=== PATIENT | male | born 1985 | race African-American/Black ===

== ENCOUNTER 2019-11-19 16:17 | Emergency (ER) | payer SELFPAY ==
[2019-11-19 16:47] VITALS: BP 159/103
--- NOTE | 2019-11-19 17:11 | ER Document Report ---
ED Medical Screen (RME) - General Chief Complaint: Chest Pain Stated Complaint: CHEST PAIN Time Seen by Provider: 11/19/19 17:01 Mode of Arrival: Ambulatory Information source: Patient Notes: Otherwise healthy 34-year-old male presenting with chest pain. Patient reports pain ongoing for the last 2 to 3 days. He states it feels like a dull pain on the right side of his chest. He does report recent upper respiratory infection. Patient reports that he googled his symptoms today and decided to take 2 doses of amoxicillin for his chest pain. He denies any fevers. Denies any cocaine use. Exam: Lung sounds clear and equal bilaterally, no reproducible pain with palpation on the chest wall. I have greeted and performed a rapid initial assessment of this patient. A comprehensive ED assessment and evaluation of the patient, analysis of test results and completion of the medical decision making process will be conducted by additional ED providers. I have specifically instructed the patient or family members with the patient to immediately return to any nursing staff should anything change in the patient's condition or with their chief complaint. TRAVEL OUTSIDE OF THE [place] IN LAST 30 DAYS: No - Related Data Allergies/Adverse Reactions: No Known Allergies Allergy (Verified 11/19/19 16:53) Past Medical History - Social History Frequency of alcohol use: Social Drug Abuse: Marijuana - Immunizations Hx Diphtheria, Pertussis, Tetanus Vaccination: Yes Physical Exam - Vital signs Vitals: Temp Pulse Resp BP Pulse Ox 98.1 F 67 16 159/103 H 99 11/19/19 16:46 11/19/19 16:46 11/19/19 16:46 11/19/19 16:46 11/19/19 16:46 Course - Vital Signs Vital signs: Temp Pulse Resp BP Pulse Ox 98.1 F 67 16 159/103 H 99 11/19/19 16:46 11/19/19 16:46 11/19/19 16:46 11/19/19 16:46 11/19/19 16:46
--- NOTE | 2019-11-19 17:35 | RADIOLOGY REPORT (SQ) ---
EXAM DESCRIPTION: CHEST 2 VIEWS COMPLETED DATE/TIME: 11/19/2019 5:17 pm REASON FOR STUDY: chest pain COMPARISON: None. EXAM PARAMETERS: NUMBER OF VIEWS: two views TECHNIQUE: Digital Frontal and Lateral radiographic views of the chest acquired. RADIATION DOSE: NA LIMITATIONS: none FINDINGS: LUNGS AND PLEURA: No opacities, masses or pneumothorax. No pleural effusion. MEDIASTINUM AND HILAR STRUCTURES: No masses or contour abnormalities. HEART AND VASCULAR STRUCTURES: Heart normal size. No evidence for failure. BONES: No acute findings. HARDWARE: None in the chest. OTHER: No other significant finding. IMPRESSION: NO ACUTE RADIOGRAPHIC FINDING IN THE CHEST. TECHNICAL DOCUMENTATION: JOB ID: [id number] 2010 [employer]- All Rights Reserved Reading location - IP/workstation name: [facility]
[2019-11-19 18:41] LABS: ABSOLUTE EOSINOPHILS # (AUTO) 0.4 10^3/uL (0.0-0.6); ABSOLUTE NEUT (AUTO) 5.1 10^3/uL (1.7-8.2); TOTAL CELLS COUNTED % (AUTO) 100 %
[2019-11-19 18:49] LABS: ABSOLUTE BASOPHILS # (AUTO) 0.1 10^3/uL (0.0-0.2); ABSOLUTE LYMPHOCYTES (AUTO) 4.6 10^3/uL (0.5-4.7); BASOPHILS % (AUTO) 0.8 % (0-2); EOSINOPHILS % (AUTO) 3.9 % (0-6); HEMATOCRIT 42.6 % (37.9-51.0); HEMOGLOBIN 14.9 g/dL (13.5-17.0); LYMPHOCYTES % (AUTO) 40.7 % (13-45); MEAN CORPUSCULAR HEMOGLOBIN 30.3 pg (27.0-33.4); MEAN CORPUSCULAR HGB CONC 34.9 g/dL (32.0-36.0); MEAN CORPUSCULAR VOLUME 87 fl (80-97); MONOCYTES % (AUTO) 8.8 % (3-13); PLATELET COUNT 706 10^3/uL (150-450); RED BLOOD COUNT 4.89 10^6/uL (4.35-5.55); RED CELL DISTRIBUTION WIDTH 13.8 % (11.5-14.0); SEGMENTED NEUTROPHILS % (AUTO) 45.8 % (42-78); WHITE BLOOD COUNT 11.2 10^3/uL (4.0-10.5)
[2019-11-19 18:55] LABS: ALBUMIN 4.4 g/dL (3.5-5.0); ALKALINE PHOSPHATASE 88 U/L (38-126); ANION GAP 8 (5-19); ASPARTATE AMINO TRANSFERASE 89 U/L (17-59); BILIRUBIN,DIRECT 0.3 mg/dL (0.0-0.4); BILIRUBIN,TOTAL 0.3 mg/dL (0.2-1.3); BLOOD UREA NITROGEN 11 mg/dL (7-20); CALCIUM 10.1 mg/dL (8.4-10.2); CARBON DIOXIDE 28 mmol/L (22-30); CHLORIDE 106 mmol/L (98-107); GLUCOSE 99 mg/dL (75-110); POTASSIUM 4.5 mmol/L (3.6-5.0)
[2019-11-19] MEDS ORDERED: DEXAMETHASONE SOD PHOS INJ 10 MG/1 ML VIAL IV ONE (21:19)
--- NOTE | 2019-11-19 21:25 | ER Document Report ---
ED General - General Chief Complaint: Chest Pain Stated Complaint: CHEST PAIN Time Seen by Provider: 11/19/19 17:01 Mode of Arrival: Ambulatory Notes: Patient is a 34-year-old male that comes emergency department for chief complaint of right-sided chest pain. He states that he had a cough, chills, and an upper respiratory infection which has almost resolved, he states he still has a rare cough and occasional sneezing, he states that when he moves, coughs, or sneezes he feels some sharp pain along the right side of his chest. He denies current pain, injury, difficulty breathing, nausea or vomiting. He states he is wondering if he has pneumonia. He denies smoking, he does admit to marijuana use and he also admits to occasional cocaine use. He states he has not used cocaine in over 1 week, his significant other at bedside confirms this. He does drink regularly however. He denies any diagnosed medical history or daily medications. TRAVEL OUTSIDE OF THE [place] IN LAST 30 DAYS: No - Related Data Allergies/Adverse Reactions: No Known Allergies Allergy (Verified 11/19/19 16:53) Past Medical History - General Information source: Patient - Social History Smoking Status: Former Smoker Frequency of alcohol use: Social Drug Abuse: Cocaine, Marijuana Lives with: Family Family History: None Patient has suicidal ideation: No Patient has homicidal ideation: No - Medical History Medical History: Negative Surgical Hx: Negative - Immunizations Hx Diphtheria, Pertussis, Tetanus Vaccination: Yes Review of Systems - Review of Systems Constitutional: See HPI EENT: No symptoms reported Cardiovascular: See HPI Respiratory: See HPI Gastrointestinal: No symptoms reported Genitourinary: No symptoms reported Male Genitourinary: No symptoms reported Musculoskeletal: See HPI Skin: No symptoms reported Hematologic/Lymphatic: No symptoms reported Neurological/Psychological: No symptoms reported Physical Exam - Vital signs Vitals: Temp Pulse Resp BP Pulse Ox 98.1 F 67 16 159/103 H 99 11/19/19 16:46 11/19/19 16:46 11/19/19 16:46 11/19/19 16:46 11/19/19 16:46 - Notes Notes: GENERAL: Alert, interacts well. No acute distress. HEAD: Normocephalic, atraumatic. EYES: Pupils equal, round, and reactive to light. Extraocular movements intact. ENT: Oral mucosa moist, tongue midline. Oropharynx unremarkable. Airway patent. Nares patent, no nasal septal hematoma NECK: Full range of motion. Supple. Trachea midline. LUNGS: Clear to auscultation bilaterally, no wheezes, rales, or rhonchi. No respiratory distress. Nontender chest. HEART: Regular rate and rhythm. No murmur ABDOMEN: Soft, non-tender. Non-distended. Bowel sounds present in all 4 quadrants. GENITOURINARY: Deferred EXTREMITIES: Moves all 4 extremities spontaneously. No edema, normal radial and dorsalis pedis pulses bilaterally. No cyanosis. BACK: no cervical, thoracic, lumbar midline tenderness. No saddle anesthesia, normal distal neurovascular exam. Moves all extremities in full range of motion. NEUROLOGICAL: Alert and oriented x3. Normal speech. Cranial nerves II through XII grossly intact. PSYCH: Normal affect, normal mood. SKIN: Warm, dry, normal turgor. No rashes or lesions noted. Course - Re-evaluation Re-evalutation: Patient only has pain with cough, sneeze, or movement. This is only on the right side. Very atypical, suspect either costochondritis or pleurisy although he does not have any overt tenderness with palpation of the chest wall. No tachycardia, no shortness of breath, normal chest x-ray, unremarkable EKG. CBC and chemistry unremarkable except for mild elevated LFTs. Troponin negative. Patient blood pressure is borderline high today, discussed importance of recheck and monitoring, advised to avoid alcohol and Tylenol because of slightly elevated LFTs and recommended recheck. I had a detailed discussion about the extreme dangers of cocaine use including heart attack, cardiomegaly, etc. Patient states appreciation for the details and that he plans to not use this anymore. Overall presentation is most consistent with pleurisy, patient given dose of dexamethasone after discussing options, discussed follow-up, recommendations, return precautions. Patient and significant other state understanding and agreement. Stable at time of discharge. - Vital Signs Vital signs: Temp Pulse Resp BP Pulse Ox 98.1 F 67 16 159/103 H 97 11/19/19 16:46 11/19/19 16:46 11/19/19 16:46 11/19/19 16:46 11/19/19 21:09 - Laboratory Result Diagrams: 11/19/19 18:00 11/19/19 18:00 Laboratory results interpreted by me: 11/19/19 11/19/19 18:00 18:00 WBC 11.2 H Plt Count 706 H AST 89 H ALT 98 H - EKG Interpretation by Me Additional EKG results interpreted by me: EKG shows sinus rhythm at a rate of 78, QTC of 415, normal axis, no T wave inversions or ST segment changes in consecutive leads. Discharge - Discharge Clinical Impression: Right-sided chest pain Condition: Stable Disposition: HOME, SELF-CARE Additional Instructions: Your work-up does not show any concerning findings, I suspect you have pleurisy or even costochondritis as the cause of your pain. You have been treated for this, you can take [id number] anti-inflammatory such as ibuprofen or naproxen for your symptoms. This should simply resolve with time. Your liver function tests are slightly elevated, avoid Tylenol and alcohol, have this rechecked with primary care. Also have your blood pressure rechecked with primary care for additional management. Return if you worsen including difficulty breathing, passing out, spiking fever, severe worsening pain, or any other concerning symptoms. Referrals: [facility] [Provider Group] - Follow up in 1 week
--- NOTE | 2019-11-19 22:29 | EKG REPORT ---
SEVERITY:- NORMAL ECG - SINUS RHYTHM : Confirmed by: Svetlana Sims 19-Nov-2019 22:28:33
== END 2019-11-19 21:47 | disposition home or self-care (01) ==
LOC: ER 16:17
DX: R07.9 Chest pain, unspecified (principal); R05 Cough; R68.83 Chills (without fever); R06.7 Sneezing; F14.10 Cocaine abuse, uncomplicated; F12.10 Cannabis abuse, uncomplicated; Z87.891 Personal history of nicotine dependence
CPT/HCPCS: 93005; 36415; 85025; 80053; 84484; 71046; 93010; J1100; 96374; 99285

== ENCOUNTER 2020-04-22 23:57 | Inpatient (IN) | payer SELFPAY ==
[2020-04-23] MEDS ORDERED: NORMAL SALINE 1000 ML 1,000 ML IV ONE (00:14)
--- NOTE | 2020-04-23 00:22 | ER Document Report ---
ED General - General Stated Complaint: POSSIBLE OVERDOSE Time Seen by Provider: 04/23/20 00:12 TRAVEL OUTSIDE OF THE [place] IN LAST 30 DAYS: No - HPI Notes: Chief complaint: Accidental overdose History of present illness: 35-year-old male in good general health taking no regular medications with no known allergies states that he accidentally overdosed on Percocet which he snorted tonight. Patient says that he intermittently uses cocaine and has on occasion snorted Percocet. He indicates that he had crushed 30 mg of Percocet and snorted this. Girlfriend found him unresponsive and called EMS. Upon arrival of EMS they found him with agonal sonorous respirations and pinpoint pupils. He had placement of an IV and administration of 2 mg of Narcan IV. He quickly regained consciousness. He had an O2 saturation below 80%. He was placed on a nonrebreather bringing his oxygen up to 94%. He is awake alert and cooperative upon transport to emergency department. He has no specific complaints at this time. He states that he is never overdosed previously. He denies any use of injectable drugs. Says that he usually drinks some beer every day but has not had any tonight. He denies any suicidal/homicidal intent or hallucinations. - Related Data Allergies/Adverse Reactions: No Known Allergies Allergy (Verified 11/19/19 16:53) Past Medical History - General Information source: Patient, Emergency Med Personnel, [facility] Records - Social History Smoking Status: Current Every Day Smoker Frequency of alcohol use: Social Drug Abuse: Other - As per HPI Occupation: Unemployed Lives with: Spouse/Significant other Family History: None, Reviewed & Not Pertinent Patient has suicidal ideation: No Patient has homicidal ideation: No - Medical History Medical History: Negative - Immunizations Hx Diphtheria, Pertussis, Tetanus Vaccination: Yes Review of Systems - Review of Systems Notes: Constitutional: Negative for fever. HENT: Negative for sore throat. Eyes: Negative for visual changes. Cardiovascular: Negative for chest pain. Respiratory: Negative for shortness of breath. Gastrointestinal: Negative for abdominal pain, vomiting or diarrhea. Genitourinary: Negative for dysuria. Musculoskeletal: Negative for back pain. Skin: Negative for rash. Neurological: Negative for headaches, weakness or numbness. 10 point ROS negative except as marked above and in HPI. Physical Exam - Vital signs Vitals: Pulse Ox 80 L 04/22/20 23:59 - Notes Notes: GENERAL: Well-developed well-nourished male approximately stated age who was brought in on a nonrebreather mask with an O2 saturation of 92% by pulse oximetry patient appears slightly sleepy but he is cooperative and responds appropriately to questioning. SKIN: Moist with good turgor no rashes. HEAD: Normocephalic atraumatic. EYES: Pupils are equal and pinpoint sluggishly reactive to light. Mild bilateral lid ptosis. Extraocular movements are intact. Conjunctivae and sclerae clear. EARS: CANALS AND TMS CLEAR. NOSE: CLEAR. MOUTH: Moist mucosa. Good dentition. No stridor or edema. No drooling. NECK: Supple. No masses or thyromegaly. No adenopathy. Carotids 2+ without bruits. No JVD. BACK: Symmetrical without tenderness. CHEST: Respirations unlabored. Few scattered rhonchi bilaterally. HEART: Regular rhythm. No murmur gallop or rub. ABDOMEN: Soft nontender without masses, organomegaly or rebound. Bowel sounds normally active. No bruits. GENITALIA: Deferred. EXTREMITIES: No edema. No calf tenderness. Cap refill less than 1.5 seconds. Dorsalis pedis and posterior tibial pulses 3+ and symmetrical. NEUROLOGICAL: GCS 15. Alert and oriented x3. Fluent speech. Cranial nerves II through XII intact. Sensory and motor testing normal. Normal tone. PSYCHIATRIC: Appropriate affect. Course - Re-evaluation Re-evalutation: 04/23/20 01:35 Patient had suspected aspiration pneumonitis after accidentally overdosing himself on fentanyl which he had snorted recreationally. Patient was given IV Rocephin. He was placed on nonrebreather. He responded well to initial dose of Narcan. He started to desaturate again and his respiratory rate dropped and he was clearly becoming sedated once more. We gave him a second 2 mg IV bolus of Narcan. I have now placed him on continuous IV Narcan infusion 2 mg/h. Arterial blood gas showed a pH of 7.2 with a PCO2 of 66 and a PO2 of 68. He will be admitted to the critical care unit at this time. - Vital Signs Vital signs: Temp Pulse Resp BP Pulse Ox 23 H 189/112 H 93 04/23/20 01:18 04/23/20 01:18 04/23/20 01:18 - Laboratory Result Diagrams: 04/23/20 00:28 04/23/20 00:28 Laboratory results interpreted by me: 04/23/20 04/23/20 04/23/20 00:28 00:28 00:49 WBC 22.2 H RDW 14.1 H Band Neutrophils % 1 L Abs Neuts (Manual) 13.5 H Abs Lymphs (Manual) 7.8 H Carbonic Acid 1.90 H ABG pH 7.20 L* ABG pCO2 63.2 H ABG pO2 61.7 L ABG HCO3 24.1 H ABG O2 Saturation 85.6 L Potassium 3.5 L Glucose 244 H ALT 56 H Acetaminophen < 10 L - Diagnostic Test Radiology reviewed: Reports reviewed - Portable chest x-ray: Left upper lobe infiltrate per radiologist - EKG Interpretation by Me Additional EKG results interpreted by me: 04/23/20 00:24 Twelve-lead EKG from 00 12 hours reviewed contemporaneously by me showing normal sinus rhythm with a rate of 94 and borderline prolongation of the QT interval with a QTC of 471 ms. Voltage criteria for LVH are present. There are no acute ST changes. No old EKG for comparison. Indication for current study: Accidental overdose of opiates. Critical Care Note - Critical Care Note Total time excluding time spent on procedures (mins): 35 - Narcotic overdose. IV Narcan infusion. Aspiration pneumonitis. Discharge - Discharge Clinical Impression: Opioid overdose, Aspiration pneumonitis Condition: Critical Disposition: ADMITTED INPATIENT Admitting Provider: Edvin (Plastic Panel Installer) Unit Admitted: ICU
[2020-04-23 00:41] LABS: HEMATOCRIT 41.6 % (37.9-51.0); HEMOGLOBIN 14.1 g/dL (13.5-17.0); MEAN CORPUSCULAR HEMOGLOBIN 29.7 pg (27.0-33.4); MEAN CORPUSCULAR VOLUME 88 fl (80-97); PLATELET COUNT 350 10^3/uL (150-450); RED BLOOD COUNT 4.76 10^6/uL (4.35-5.55); RED CELL DISTRIBUTION WIDTH 14.1 % (11.5-14.0); WHITE BLOOD COUNT 22.2 10^3/uL (4.0-10.5)
--- NOTE | 2020-04-23 00:59 | RADIOLOGY REPORT (SQ) ---
EXAM DESCRIPTION: XR CHEST 1 VIEW COMPLETED DATE/TME: 04/23/2020 00:12 CLINICAL HISTORY: 35 years, Male, Hypoxia with probable aspiration COMPARISON: 11/19/2019 chest NUMBER OF VIEWS: 1 TECHNIQUE: Portable chest LIMITATIONS: None. FINDINGS: The heart size is normal. Airspace opacities of the left upper lobe consistent with pneumonitis. No pneumothorax IMPRESSION: Left upper lobe pneumonitis copyright 2010 [employer]- All Rights Reserved
[2020-04-23 01:01] LABS: ARTERIAL BLOOD BASE EXCESS -5.2 mmol/L; ARTERIAL BLOOD HCO3 24.1 mmol/L (20-24); ARTERIAL BLOOD O2 SATURATION 85.6 % (94-98); ARTERIAL BLOOD PCO2 63.2 mmHg (35-45); ARTERIAL BLOOD PO2 61.7 mmHg (80-100)
[2020-04-23 01:02] LABS: ABSOLUTE LYMPHOCYTES# (MANUAL) 7.8 10^3/uL (0.5-4.7); ABSOLUTE MONOCYTES # (MANUAL) 0.7 10^3/uL (0.1-1.4); BAND NEUTROPHILS % (MANUAL) 1 % (3-5); BASOPHILS % (MANUAL) 0 % (0-2); EOSINOPHILS % (MANUAL) 1 % (0-6); LYMPHOCYTES % (MANUAL) 35 % (13-45); MONOCYTES % (MANUAL) 3 % (3-13); SEGMENTED NEUTROPHILS % (MAN) 60 % (42-78); TOTAL CELLS COUNTED 100
[2020-04-23 01:02] LABS: ARTERIAL BLOOD FIO2 15L
[2020-04-23 01:03] LABS: PLATELET COMMENT ADEQUATE; RBC MORPHOLOGY COMMENT NORMO-CYTIC/CHROMIC
--- NOTE | 2020-04-23 01:07 | EKG REPORT ---
SEVERITY:- ABNORMAL ECG - SINUS RHYTHM PROBABLE LEFT ATRIAL ABNORMALITY PROBABLE LEFT VENTRICULAR HYPERTROPHY BORDERLINE PROLONGED QT INTERVAL : Confirmed by: Svetlana Sims 23-Apr-2020 01:06:26
[2020-04-23 01:11] LABS: ALBUMIN 4.4 g/dL (3.5-5.0); ALKALINE PHOSPHATASE 70 U/L (38-126); ANION GAP 12 (5-19); ASPARTATE AMINO TRANSFERASE 42 U/L (17-59); BILIRUBIN,DIRECT 0.1 mg/dL (0.0-0.4); BILIRUBIN,TOTAL 0.4 mg/dL (0.2-1.3); BLOOD UREA NITROGEN 17 mg/dL (7-20); CALCIUM 9.2 mg/dL (8.4-10.2); CARBON DIOXIDE 22 mmol/L (22-30); CHLORIDE 105 mmol/L (98-107); GLUCOSE 244 mg/dL (75-110); POTASSIUM 3.5 mmol/L (3.6-5.0); TOTAL PROTEIN 7.6 g/dL (6.3-8.2)
[2020-04-23] MEDS ORDERED: CEFTRIAXONE INJ 1000 MG VIAL IV ONE (01:16)
[2020-04-23 01:17] LABS: ACETAMINOPHEN < 10 ug/mL (10-30); ALCOHOL < 10 mg/dL (NONE DETECTED)
[2020-04-23] MEDS ORDERED: NALOXONE HCL INJ 2 MG/2 ML DISP.SYRIN ONE ×2 (01:18→01:53)
[2020-04-23] MEDS ORDERED: NORMAL SALINE 500 ML with NALOXONE HCL 2 MG IV PRN ×2 (01:23)
[2020-04-23] MEDS ORDERED: NALOXONE HCL INJ 2 MG/2 ML DISP.SYRIN IV ONE (01:30)
[2020-04-23 01:48] LABS: APPEARANCE,URINE SLIGHTLY-CLOUDY; BILIRUBIN,URINE NEGATIVE (NEGATIVE); COLOR,URINE STRAW; GLUCOSE, URINE >=500 mg/dL (NEGATIVE); KETONES,URINE NEGATIVE (NEGATIVE); PROTEIN,URINE 100 mg/dL (NEGATIVE); URINE SPECIFIC GRAVITY 1.014; UROBILINOGEN,URINE NEGATIVE mg/dL (<2.0)
[2020-04-23 02:13] LABS: URINE AMPHETAMINES SCREEN NEGATIVE; URINE BARBITURATES SCREEN NEGATIVE; URINE BENZODIAZEPINES SCREEN NEGATIVE; URINE COCAINE SCREEN NEGATIVE; URINE METHADONE SCREEN NEGATIVE; URINE PHENCYCLIDINE SCREEN NEGATIVE
[2020-04-23 02:14] LABS: URINE MARIJUANA (THC) SCREEN UNCONFIRMED POSITIVE
--- NOTE | 2020-04-23 05:30 | ER Document Report ---
Doctor's Note Notes: 04/23/20 05:23 Patient turned over to me pending dispo. Patient was in his usual state of health and snorted Percocet and was found obtunded by his girlfriend who called EMS. Patient given Narcan by EMS with good response and 2 doses of Narcan in ED. ICU was called consulted by initial treating physician because after 2 doses of Narcan patient remained obtunded so this physician ordered a Narcan drip which would require ICU admission. On ICU evaluation and my evaluation patient was not significantly obtunded after the second dose of Narcan and was easily aroused by voice or touch. Had initial hypoxia to 70s and was started on high flow nasal cannula, but now I have transitioned patient to 3 L nasal cannula and he is maintaining sats around 97% when there is a good waveform. I have now transition patient to room air and will evaluate his respiratory status. If he is not able to sufficiently oxygenate on room air then I will admit patient. Patient is mildly tachypneic but denies feeling short of breath, he has coarse breath sounds diffusely consistent with his likely aspiration pneumonitis. Given that patient was in good health without any respiratory symptoms prior to the overdose that caused his ED presentation his leukocytosis is likely an acute phase reactant to his overdose and not help desk representative of a infection requiring antibiotics. Will continue to monitor closely in ED. 04/23/20 06:12 Patient's hypoxia and tachypnea improved and he was tolerating being on room air, but when nursing staff attempted to have patient ambulate he quickly desatted to low 80s and became very dyspneic and said he was dizzy and needed to be immediately returned to his bed. Patient is clinically sober at this point and continues to give me a reliable story that he was completely well before this overdose event and has no other medical history. Given significant exercise intolerance secondary to aspiration pneumonitis I have admitted patient to IMCU as per discussion with Dr. Mcclelland who will turn over this patient to the daytime hospitalist.
--- NOTE | 2020-04-23 09:04 | PDOC CONSULTATION ---
Consultation Consult Date: 04/23/20 Attending physician:: AMIRA BALL Provider Consulted: SLY KELLY Consult reason:: Drug overdose History of Present Illness Admission Date/PCP: 04/23/20 01:44 Patient complains of: Found unresponsive at home History of Present Illness: JUDY JERONIMO is a 35 year old male who states that he crushed Percocet approximately 10 PM last night and snorted it. He was found down by his girlfriend. EMS was called. Upon arrival to the emergency department he was lethargic. He was very hypoxic. Blood gas showed acute respiratory failure with hypoxia and hypercapnia. White blood cell count was elevated at 22,000. Urinalysis was suggestive of infection. Interestingly, his drug screen was only positive for marijuana but no other drugs. He was given Narcan and responded appropriately. This morning he is easily awakened. He does have a cough and is slightly tachycardic. He was afebrile with the first set of vital signs. No other temperatures have been obtained. Past Medical History Cardiac Medical History: Reports: None Pulmonary Medical History: Reports: None EENT Medical History: Reports: None Neurological Medical History: Reports: None Endocrine Medical History: Reports: None Renal/ Medical History: Reports: None Malignancy Medical History: Reports: None GI Medical History: Reports: None Musculoskeltal Medical History: Reports: None Skin Medical History: Reports: None Psychiatric Medical History: Reports: Substance Abuse Traumatic Medical History: Reports: None Hematology: Reports: None Infectious Medical History: Reports: None Past Surgical History Past Surgical History: Reports: None Social History Information Source: Patient Lives with: Spouse/Significant other Smoking Status: Current Every Day Smoker Electronic Cigarette use?: No Frequency of Alcohol Use: Social Hx Recreational Drug Use: Yes Drugs: Cocaine, Marijuana Hx Prescription Drug Abuse: Yes - Percocet - Advance Directive Resuscitation Status: Full Code Surrogate healthcare decision maker:: His mother Family History Family History: Hypertension Parental Family History Reviewed: Yes Children Family History Reviewed: NA Sibling(s) Family History Reviewed.: Yes Medication/Allergy Allergies/Adverse Reactions: No Known Allergies Allergy (Verified 11/19/19 16:53) Review of Systems Constitutional: ABSENT: chills, headache(s), weakness, weight gain, weight loss Eyes: ABSENT: visual disturbances Ears: ABSENT: hearing changes Nose, Mouth, and Throat: PRESENT: other - Occasional tooth pain right lower and left upper Cardiovascular: ABSENT: chest pain, dyspnea on exertion, palpitations Respiratory: PRESENT: cough. ABSENT: sputum Gastrointestinal: ABSENT: abdominal pain, constipation, heartburn, nausea, vomiting Genitourinary: PRESENT: other - Frequency. ABSENT: dysuria Integumentary: ABSENT: diaphoresis, erythema, lesions, pruritus, rash Neurological: ABSENT: abnormal gait, abnormal movements, confusion, memory loss Psychiatric: ABSENT: anxiety, depression, hallucinations Endocrine: ABSENT: cold intolerance, heat intolerance Hematologic/Lymphatic: ABSENT: easy bleeding, easy bruising Allergic/Immunologic: ABSENT: seasonal rhinorrhea Physical Exam Vital Signs: Temp Pulse Resp BP Pulse Ox 98.1 F 29 H 161/117 H 100 04/23/20 02:37 04/23/20 08:01 04/23/20 08:01 04/23/20 08:01 Intake & Output 04/22/20 04/23/20 04/24/20 06:59 06:59 06:59 Weight 81.647 kg General appearance: PRESENT: no acute distress, cooperative, well-developed Head exam: PRESENT: atraumatic, normocephalic Eye exam: PRESENT: conjunctiva pink, EOMI, PERRLA. ABSENT: scleral icterus Ear exam: PRESENT: normal external ear exam. ABSENT: bleeding, drainage Mouth exam: PRESENT: moist, tongue midline Teeth exam: PRESENT: poor dentation Throat exam: ABSENT: post pharyngeal erythema Neck exam: PRESENT: full ROM. ABSENT: carotid bruit, JVD, lymphadenopathy Respiratory exam: PRESENT: clear to auscultation aldo, symmetrical, unlabored. ABSENT: accessory muscle use, decreased breath sounds, rales, rhonchi, tachypnea, wheezes Cardiovascular exam: PRESENT: +S1, +S2, tachycardia - Mild. ABSENT: bradycardia, diastolic murmur, irregular rhythm, systolic murmur GI/Abdominal exam: PRESENT: normal bowel sounds, soft. ABSENT: distended, guarding, mass, tenderness Rectal exam: PRESENT: deferred Gentrourinary exam: ABSENT: indwelling catheter Extremities exam: ABSENT: calf tenderness, pedal edema Musculoskeletal exam: PRESENT: ambulatory, full ROM, normal inspection. ABSENT: deformity, dislocation Neurological exam: PRESENT: alert, awake, oriented to person, oriented to place, oriented to time, oriented to situation, CN II-XII grossly intact. ABSENT: motor sensory deficit Psychiatric exam: PRESENT: appropriate affect. ABSENT: agitated, anxious Focused psych exam: ABSENT: delusional, paranoid, restlessness Skin exam: ABSENT: abrasion, cyanosis, erythema Results Laboratory Results: 04/23/20 00:28 04/23/20 00:28 04/23/20 04/23/20 04/23/20 00:28 00:28 00:49 WBC 22.2 H RBC 4.76 Hgb 14.1 Hct 41.6 MCV 88 MCH 29.7 MCHC 34.0 RDW 14.1 H Plt Count 350 Seg Neutrophils % Not Reportable Carbonic Acid 1.90 H HCO3/H2CO3 Ratio 12:1 ABG pH 7.20 L* ABG pCO2 63.2 H ABG pO2 61.7 L ABG HCO3 24.1 H ABG O2 Saturation 85.6 L ABG Base Excess -5.2 FiO2 15L Sodium 138.9 Potassium 3.5 L Chloride 105 Carbon Dioxide 22 Anion Gap 12 BUN 17 Creatinine 1.09 Est GFR ( Amer) > 60 Glucose 244 H Calcium 9.2 Total Bilirubin 0.4 AST 42 Alkaline Phosphatase 70 Total Protein 7.6 Albumin 4.4 Urine Color Urine Appearance Urine pH Ur Specific [place] Urine Protein Urine Glucose (UA) Urine Ketones Urine Blood Urine RBC (Auto) 04/23/20 01:25 WBC RBC Hgb Hct MCV MCH MCHC RDW Plt Count Seg Neutrophils % Carbonic Acid HCO3/H2CO3 Ratio ABG pH ABG pCO2 ABG pO2 ABG HCO3 ABG O2 Saturation ABG Base Excess FiO2 Sodium Potassium Chloride Carbon Dioxide Anion Gap BUN Creatinine Est GFR ( Amer) Glucose Calcium Total Bilirubin AST Alkaline Phosphatase Total Protein Albumin Urine Color STRAW Urine Appearance SLIGHTLY-CLOUDY Urine pH 5.0 Ur Specific [place] 1.014 Urine Protein 100 H Urine Glucose (UA) >=500 H Urine Ketones NEGATIVE Urine Blood SMALL H Urine RBC (Auto) 3 04/23/20 00:28 Troponin I 0.025 Impressions: Chest X-Ray 04/23/20 00:12 IMPRESSION: Left upper lobe pneumonitis copyright 2010 [employer]- All Rights Reserved Assessment and Plan - Diagnosis (1) Accidental drug overdose Qualifiers: Encounter type: initial encounter Qualified Code(s): T50.901A - Poisoning by unspecified drugs, medicaments and biological substances, accidental (unintentional), initial encounter Is this a current diagnosis for this admission?: Yes Plan: The patient snorted Percocet last night per his report. Drug screen was negative. He did respond to Narcan. This morning he is awake and alert and participating fully in this encounter. (2) Aspiration pneumonitis Is this a current diagnosis for this admission?: Yes Plan: His white blood cell count was elevated and he would be at high risk secondary to his overdose. He has been afebrile. (3) Cystitis Is this a current diagnosis for this admission?: Yes Plan: The patient's urinalysis had white blood cells (114 per high-power field) and was leukocyte Estrace positive. A specimen has been sent for culture. (4) Marijuana abuse Is this a current diagnosis for this admission?: Yes Plan: On a daily basis. (5) Cocaine abuse Is this a current diagnosis for this admission?: Yes Plan: Patient admits to intermittent cocaine use. (6) Essential (primary) hypertension Is this a current diagnosis for this admission?: Yes Plan: Blood pressures were elevated. There is a family history of hypertension. I will send a prescription for Augmentin as this will cover aspiration pneumonitis as well as most organisms in the urinary tract. - Plan Summary Summary: At this point the patient remained with pulse oximetry greater than 90% during this whole encounter. He did get up and walk to the bathroom without any difficulties or imbalance. He is awake alert and oriented. After discussing this fully with the patient I am suggesting discharged home with a course of antibiotic therapy. [facility] as his blood pressure was elevated today and he has a family history of blood pressure. - Time Time Spent with patient: 35 or more minutes Smoking Cessation Education: 3 to 10 minutes Medications reviewed and adjusted accordingly: Yes Anticipated discharge: Home Within: Other - Now
[2020-04-23 09:10] VITALS: BP 171/119
== END 2020-04-23 09:21 | disposition home or self-care (01) | DRG 917 ==
LOC: ER 23:57 → EH 04-23 01:44 → UNDODISIN 04-23 09:21
PROVIDERS: ADMIT Emergency Medicine; ATTEND Hospitalist
DX: T40.5X1A Poisoning by cocaine, accidental (unintentional), initial encounter (principal); J69.0 Pneumonitis due to inhalation of food and vomit; J96.02 Acute respiratory failure with hypercapnia; J96.01 Acute respiratory failure with hypoxia; T40.4X1A Poisoning by other synthetic narcotics, accidental (unintentional), initial encounter; J70.4 Drug-induced interstitial lung disorders, unspecified; I10 Essential (primary) hypertension; F12.10 Cannabis abuse, uncomplicated; F14.10 Cocaine abuse, uncomplicated; F17.210 Nicotine dependence, cigarettes, uncomplicated; Y92.018 Other place in single-family (private) house as the place of occurrence of the external cause
CPT/HCPCS: 36415; 71045; 80053; 80307; 81001; 82803; 84484; 85025; 87086; 93005; 93010; 96361; 96374; 99285; J0696; J2310; J7030